=== PATIENT | female | born 1995 | race Two or more races ===

== ENCOUNTER 2019-05-07 18:26 | Emergency (ER) | payer OTHER ==
[~2019-05-07] VITALS: Ht 160 cm; Wt 77.1 kg
--- NOTE | 2019-05-07 18:33 | NUR ---
PT A/OX4, PRESENTS TO THE ER C/O HEADACHE AND DIZZINESS SINCE 1730 TODAY. PT DENIES ANY TRAUMA. NO FACIAL DROOP, BILATERAL EYES PERRLA, OF CLEAR SPEECH, NO HEMILATERAL WEAKNESS, EQUAL HANDS ASSEMBLER BILATERALLY. PT IS HYPERTENSIVE, ER MD MADE AWARE. PT DENIES C/P, SOB, N/V/D.
[2019-05-07] MEDS ORDERED: KETOROLAC TROMETHAMINE 60 MG INJ IM ONE ×2 (19:00→19:24)
[2019-05-07 19:04] LABS: *BILIRUBIN,URIN NEGATIVE (NEGATIVE); *BLOOD, URINE 2+ (NEGATIVE); *CLARITY,URINE CLEAR (CLEAR); *KETONES,URINE NEGATIVE (NEGATIVE); *UROBILINOGEN,URINE 0.2 E.U./dl (NORMAL); LEUKOCYTE ESTERASE ,URINE NEGATIVE (NEGATIVE); NITRITE, URINE NEGATIVE (NEGATIVE); UGLUCOSE NEGATIVE (NEGATIVE)
--- NOTE | 2019-05-07 19:04 | NUR ---
SHIFT REPORT GIVEN TO PRICILLA Quarles RN. PT RESTING COMFORTABLY IN BED AT THIS TIME. CANDE.
[2019-05-07 19:08] LABS: *URINE HCG, QUAL NEGATIVE (NEGATIVE)
--- NOTE | 2019-05-07 19:10 | NUR ---
Patient xfer'd downstairs via [facility] for CT/head. In stable condition.
[2019-05-07 19:12] LABS: *COLOR,URINE LIGHT YELLOW (YELLOW)
[2019-05-07 19:14] LABS: BACTERIA,URINE FEW /HPF (NONE SEEN); SQUAMOUS EPITHELIAL CELL,UR MODERATE /HPF (NONE SEEN); WBC,URINE 0-3 /HPF (0-3)
--- NOTE | 2019-05-07 19:47 | NUR ---
Upon discharge, patient mentioned that she is having some difficulty breathing. ERMD notified, CXR will be ordered.
--- NOTE | 2019-05-07 20:11 | NUR ---
CXR (-), patient good for discharge. Patient discharged to home in stable conditon. Written and verbal after care instructions given. Patient verbalizes understanding of instructions. Patient ambulated with stable gait.
[2019-05-07 20:12] VITALS: BP 145/82
== END 2019-05-07 20:13 | disposition home or self-care (01) ==
LOC: ER 18:26
DX: R51 Headache (principal); R42 Dizziness and giddiness
CPT/HCPCS: 70450; 71045; 81000; 81001; 84703; 96372; 99284; J1885; A4663